=== PATIENT | male | born 1980 | race Caucasian/White ===

== ENCOUNTER 2017-10-12 15:45 | Emergency (ER) | payer OTHER ==
[~2017-10-12] VITALS: Ht 188 cm; Wt 68.0 kg
[2017-10-13] MEDS ORDERED: IBUPROFEN 600 MG TABLET PO ONE (01:00)
[2017-10-13] MEDS ORDERED: HYDROCODONE/APAP 10-325 MG TABLET PO ONE (01:00)
[2017-10-13] MEDS ORDERED: IBUPROFEN 600 MG TABLET ONE (01:10)
--- NOTE | 2017-10-13 01:17 | NUR ---
Margo العراقي in ED - 10/13/17 at 0122 by CANDIS Patient discharged to home in stable conditon. Written and verbal after care instructions given. Patient verbalizes understanding of instructions.
--- NOTE | 2017-10-13 01:22 | NUR ---
Patient given written and verbal discharge instructions. Patient verbalizes understanding of instructions. Patient is ambulatory with steady gait. Refuses offer of fpc placement. Patient given list of available shelters in surrounding area.
[2017-10-13] MEDS ORDERED: HYDROCODONE/APAP 10-325 MG TABLET ONE (01:31)
== END 2017-10-13 01:23 | disposition home or self-care (01) ==
LOC: ER 15:46
DX: S60.511A Abrasion of right hand, initial encounter (principal); M25.561 Pain in right knee; V19.9XXA Pedal cyclist (driver) (passenger) injured in unspecified traffic accident, initial encounter; Y92.89 Other specified places as the place of occurrence of the external cause; Y93.55 Activity, bike riding; Y99.8 Other external cause status
CPT/HCPCS: 73130; A4663

== ENCOUNTER 2017-10-13 20:14 | Emergency (ER) | payer OTHER ==
[~2017-10-13] VITALS: Ht 188 cm; Wt 68.0 kg
--- NOTE | 2017-10-13 21:08 | NUR ---
dPatient discharged to home in stable conditon. Written and verbal after care instructions given. Patient verbalizes understanding of instructions. Ambulated from Er with stable gait. All belongings with patient.
[2017-10-13 21:10] VITALS: BP 128/81
== END 2017-10-13 21:11 | disposition home or self-care (01) ==
LOC: ER 20:18
DX: Z76.0 Encounter for issue of repeat prescription (principal); F41.9 Anxiety disorder, unspecified
CPT/HCPCS: A4663

== ENCOUNTER 2017-11-23 22:59 | Emergency (ER) | payer OTHER ==
[~2017-11-23] VITALS: Ht 188 cm; Wt 63.5 kg
[2017-11-23] MEDS ORDERED: DIAZEPAM 5 MG TABLET (23:35)
[2017-11-23] MEDS ORDERED: FLUOXETINE HCL 20 MG CAPSULE (23:35)
[2017-11-23] MEDS ORDERED: PROPRANOLOL 40 MG TABLET (23:35)
--- NOTE | 2017-11-24 00:59 | NUR ---
Patient discharged to home in stable conditon. Written and verbal after care instructions given. Patient verbalizes understanding of instructions.
== END 2017-11-24 01:00 | disposition home or self-care (01) ==
LOC: ER 22:59
DX: Z76.0 Encounter for issue of repeat prescription (principal); I10 Essential (primary) hypertension; F41.9 Anxiety disorder, unspecified
CPT/HCPCS: 93005; A4663

== ENCOUNTER 2017-12-03 19:54 | Emergency (ER) | payer OTHER ==
[~2017-12-03] VITALS: Ht 188 cm; Wt 63.5 kg
[~2017-12-03 19:54] MED LIST: DIAZEPAM 5 MG TABLET; FLUOXETINE HCL 20 MG CAPSULE; PROPRANOLOL 40 MG TABLET
--- NOTE | 2017-12-03 20:19 | NUR ---
DR. MAZA AT BEDSIDE FOR MSE.
[2017-12-03] MEDS ORDERED: PROPRANOLOL HCL 10 MG TABLET PO ONE (20:45)
[2017-12-03] MEDS ORDERED: DIAZEPAM 2 MG TABLET PO ONE (20:45)
[2017-12-03] MEDS ORDERED: DIAZEPAM 2 MG TABLET ONE (20:56)
[2017-12-03] MEDS ORDERED: PROPRANOLOL HCL 10 MG TABLET ONE (20:58)
[2017-12-03 21:45] LABS: *AMPHETAMINE, URINE POSITIVE (NEGATIVE); *BARBITURATE, URINE NEGATIVE (NEGATIVE); *CANNABINOID, URINE POSITIVE (NEGATIVE); *COCCAINE, URINE NEGATIVE (NEGATIVE); *OPIATE, URINE NEGATIVE (NEGATIVE); *PHENCYCLIDINE SCREEN,URINE NEGATIVE (NEGATIVE)
[2017-12-03 22:19] VITALS: BP 125/61
== END 2017-12-03 22:20 | disposition home or self-care (01) ==
LOC: ER 19:54
DX: F15.10 Other stimulant abuse, uncomplicated (principal); F41.9 Anxiety disorder, unspecified; F13.20 Sedative, hypnotic or anxiolytic dependence, uncomplicated; F12.10 Cannabis abuse, uncomplicated; I10 Essential (primary) hypertension; Z76.0 Encounter for issue of repeat prescription; Z79.899 Other long term (current) drug therapy
CPT/HCPCS: 80307; 99283; A4663

== ENCOUNTER 2017-12-14 17:20 | Emergency (ER) | payer OTHER ==
[~2017-12-14] VITALS: Ht 188 cm; Wt 63.5 kg
--- NOTE | 2017-12-14 18:56 | NUR ---
Margo العراقي in ED - 12/14/[address] at [address] miranda at the bedside.
--- NOTE | 2017-12-14 19:12 | NUR ---
Assumed care of patient. Patient in bed, VSS. No acute distress noted.
--- NOTE | 2017-12-14 19:13 | NUR ---
sbar report to toñito currie.
[2017-12-14] MEDS ORDERED: DIAZEPAM 2 MG TABLET PO ONE (19:30)
[2017-12-14] MEDS ORDERED: DIAZEPAM 5 MG TABLET ONE (19:35)
--- NOTE | 2017-12-14 19:37 | NUR ---
Patient discharged to home in stable conditon. Written and verbal after care instructions given. Patient verbalizes understanding of instructions.
== END 2017-12-14 19:38 | disposition home or self-care (01) ==
LOC: ER 17:24
DX: F41.1 Generalized anxiety disorder (principal); I10 Essential (primary) hypertension; Z76.0 Encounter for issue of repeat prescription; Z79.899 Other long term (current) drug therapy
CPT/HCPCS: A4663

== ENCOUNTER 2018-02-05 07:20 | Emergency (ER) | payer OTHER ==
[~2018-02-05] VITALS: Ht 188 cm; Wt 77.1 kg
--- NOTE | 2018-02-05 07:54 | NUR ---
PT WAS EVALUATED BY DR MALONE. PT WAS MEDICATED ACCORDING TO ER MD ORDERS. PT TOLERATED TO PROCEDURES AND MEDICATION WITHOUT COMPLICATIONS. PT WAS D/C TO HOME. D/C INSTRUCTIONS GIVEN TO THE PT.
[2018-02-05] MEDS ORDERED: SULFAMETH/TRIMETH 800/160 MG TABLET PO ONE (08:00)
[2018-02-05] MEDS ORDERED: MUPIROCIN 2% OINT 22 GM TUBE TP ONE (08:00)
[2018-02-05] MEDS ORDERED: SULFAMETH/TRIMETH 800/160 MG TABLET ONE (08:07)
[2018-02-05] MEDS ORDERED: MUPIROCIN 2% OINT 22 GM TUBE ONE (08:07)
[2018-02-05 08:22] VITALS: BP 129/82
== END 2018-02-05 08:24 | disposition home or self-care (01) ==
LOC: ER 07:20
DX: L97.519 Non-pressure chronic ulcer of other part of right foot with unspecified severity (principal); I10 Essential (primary) hypertension; Z48.00 Encounter for change or removal of nonsurgical wound dressing; Z76.0 Encounter for issue of repeat prescription; Z79.899 Other long term (current) drug therapy
CPT/HCPCS: A4217; A4663

== ENCOUNTER 2018-02-12 06:17 | Emergency (ER) | payer OTHER ==
[~2018-02-12] VITALS: Ht 188 cm; Wt 72.6 kg
--- NOTE | 2018-02-12 06:47 | NUR ---
DR GERSON VELAZCO MD AT BEDSIDE FOR MSE. PT C/O RT FOOT PAIN R/T BLISTERS HE HAS HAD FOR 1 WEEK. NO ACTIVE BLEEDING.
--- NOTE | 2018-02-12 07:31 | NUR ---
Recieved pt in bed, resting comfortably. NAD noted.
--- NOTE | 2018-02-12 08:00 | NUR ---
Pt ate breakfast w/ good appetite.
[2018-02-12 08:39] VITALS: BP 110/71
--- NOTE | 2018-02-12 08:40 | NUR ---
Patient given written and verbal discharge instructions. Patient verbalizes understanding of instructions. Patient is ambulatory with steady gait. Refuses offer of senior living placement. Patient given list of available shelters in surrounding area.
== END 2018-02-12 08:40 | disposition home or self-care (01) ==
LOC: ER 06:19
DX: L30.9 Dermatitis, unspecified (principal); I10 Essential (primary) hypertension; Z79.899 Other long term (current) drug therapy
CPT/HCPCS: A4663

== ENCOUNTER 2018-02-18 06:19 | Emergency (ER) | payer OTHER ==
[~2018-02-18] VITALS: Ht 188 cm; Wt 72.6 kg
--- NOTE | 2018-02-18 06:56 | NUR ---
DR FELICIA VELAZCO MD AT BEDSIDE FOR MSE.
--- NOTE | 2018-02-18 07:10 | NUR ---
Patient discharged to home in stable conditon. Written and verbal after care instructions given. Patient verbalizes understanding of instructions. Pt took all personal belongings. All pt needs met. No distress noted. Pt took all personal belongings.
[2018-02-18 07:12] VITALS: BP 142/72
== END 2018-02-18 07:12 | disposition home or self-care (01) ==
LOC: ER 06:19
DX: F41.9 Anxiety disorder, unspecified (principal); F42.9 Obsessive-compulsive disorder, unspecified; I10 Essential (primary) hypertension; Z76.0 Encounter for issue of repeat prescription
CPT/HCPCS: 99283; A4663

== ENCOUNTER 2018-02-19 15:52 | Emergency (ER) | payer OTHER ==
[~2018-02-19] VITALS: Ht 188 cm; Wt 72.6 kg
--- NOTE | 2018-02-19 17:41 | NUR ---
MSE COMPLETED, PT D/C'D HOME, ACI/RX X1 GIVEN. PT AMBULATWED W/O DIFF/TOOK ALL BELONGINGS.
[2018-02-19 17:43] VITALS: BP 148/82
== END 2018-02-19 17:43 | disposition home or self-care (01) ==
LOC: ER 15:55
DX: S90.821A Blister (nonthermal), right foot, initial encounter (principal); Z76.0 Encounter for issue of repeat prescription; I10 Essential (primary) hypertension; F41.9 Anxiety disorder, unspecified; F42.9 Obsessive-compulsive disorder, unspecified; Z59.0 Homelessness; X58.XXXA Exposure to other specified factors, initial encounter; Y93.89 Activity, other specified; Y92.89 Other specified places as the place of occurrence of the external cause; Y99.8 Other external cause status
CPT/HCPCS: A4663

== ENCOUNTER 2018-03-07 10:11 | Emergency (ER) | payer OTHER ==
[~2018-03-07] VITALS: Ht 188 cm; Wt 74.8 kg
[2018-03-07] MEDS ORDERED: CLON1TAB PO (10:21)
[2018-03-07] MEDS ORDERED: PROPRANOLOL 60 MG TABLET PO (10:21)
== END 2018-03-07 10:56 | disposition home or self-care (01) ==
LOC: ER 10:11
DX: Z76.0 Encounter for issue of repeat prescription (principal); I10 Essential (primary) hypertension; Z79.899 Other long term (current) drug therapy
CPT/HCPCS: 99283; A4663

== ENCOUNTER 2018-09-13 11:15 | Emergency (ER) | payer OTHER ==
[~2018-09-13] VITALS: Ht 188 cm; Wt 81.6 kg
[~2018-09-13 11:15] MED LIST changes: +CLON1TAB PO; -DIAZEPAM 5 MG TABLET; +FLUO20CA36 PO; -FLUOXETINE HCL 20 MG CAPSULE; -PROPRANOLOL 40 MG TABLET; +PROPRANOLOL 60 MG TABLET PO
--- NOTE | 2018-09-13 11:20 | NUR ---
Pt ambulated into ER, pt states he started having heaviness in his chest at 1100 today after he drank a lot of caffeine and smoked a cigarette. Pt placed in room 1a, EKG done and pt placed on cont manager cardiac cath.
[2018-09-13] MEDS ORDERED: METOPROLOL TARTRATE 5 MG/5 ML VIAL IVP ONE ×2 (11:45→11:50)
[2018-09-13] MEDS ORDERED: IV NORMAL SALINE 1000 ML BAG IV ONE (11:45)
[2018-09-13 11:52] VITALS: BP 137/62
[2018-09-13 12:00] LABS: BASOPHILS # (AUTO) 0.1 K/uL (0.0-8.0); BASOPHILS % (AUTO) 0.8 % (0.0-2.0); EOSINOPHILS # (AUTO) 0.3 K/uL (0.0-0.7); HEMATOCRIT 40.8 % (36.7-47.1); LYMPHOCYTES # (AUTO) 2.6 K/uL (20.0-40.0); LYMPHOCYTES % (AUTO) 22.9 % (20.5-51.5); MEAN CORPUSCULAR HEMOGLOBIN 31.4 uug (23.8-33.4); MEAN CORPUSCULAR HGB CONC 34 g/dL (32.5-36.3); MEAN CORPUSCULAR VOLUME 91.7 fL (73.0-96.2); MONOCYTES # (AUTO) 1.1 K/uL (2.0-10.0); MONOCYTES % (AUTO) 9.9 % (0.0-11.0); NEUTROPHILS # (AUTO) 7.3 K/uL (1.8-8.9); NEUTROPHILS % (AUTO) 63.4 % (38.5-71.5); PLATELET COUNT (AUTO) 294 K/uL (152-348); RED BLOOD CELL COUNT(AUTO) 4.45 MIL/uL (4.06-5.63); WHITE BLOOD COUNT (AUTO) 11.5 K/uL (3.6-10.2)
[2018-09-13 12:01] LABS: CREATININE 0.9 mg/dL (0.6-1.3)
[2018-09-13 12:13] LABS: BILIRUBIN,DIRECT 0.1 mg/dL (0.0-0.2); BILIRUBIN,TOTAL 0.4 mg/dL (0.2-1.0)
--- NOTE | 2018-09-13 12:49 | NUR ---
Patient does not wish to proceed with medical care recommended by Dr. Pascual moreno ). Patient given information related to possible complications, up to and including , which could occur as a result of leaving the hospital at this time. Patient verbalizes understanding of risks involved due to leaving against medical advice. Patient has signed AMA form.
== END 2018-09-13 12:49 | disposition left against medical advice (07) ==
LOC: ER 11:15
DX: R00.0 Tachycardia, unspecified (principal); Z76.0 Encounter for issue of repeat prescription; I10 Essential (primary) hypertension; Z79.899 Other long term (current) drug therapy
CPT/HCPCS: 36415; 71045; 80048; 80076; 83880; 84443; 84484; 85025; 85730; 93005 ×2; 96374; 99284; J3490; 70030-TC; A4663; J7030

== ENCOUNTER 2018-09-27 21:33 | Emergency (ER) | payer OTHER ==
[~2018-09-27] VITALS: Ht 188 cm; Wt 81.6 kg
--- NOTE | 2018-09-27 21:50 | NUR ---
Pt. ambulated in to ED w/ c/o CP and SOB but says "it went away", A/Ox4, MD ESTEFANY at bedside for MSE
[2018-09-27] MEDS ORDERED: CLONAZEPAM 0.5 MG TABLET ONE (22:11)
[2018-09-27] MEDS ORDERED: CLONAZEPAM 0.5 MG TABLET PO ONE (22:15)
[2018-09-27] MEDS: CLONAZEPAM 0.5 MG TABLET PO ONE (22:17)
--- NOTE | 2018-09-27 22:20 | NUR ---
Patient discharged to home in stable conditon. Written and verbal after care instructions given. Patient verbalizes understanding of instructions. Pt. d/c w/ prescription per MD order, all belongings w/ pt., d/c papers signed, pt. instructed not to drive, VSS, no acute distress,
== END 2018-09-27 22:20 | disposition home or self-care (01) ==
LOC: ER 21:35
DX: F41.8 Other specified anxiety disorders (principal); Z76.0 Encounter for issue of repeat prescription; I10 Essential (primary) hypertension; F17.200 Nicotine dependence, unspecified, uncomplicated; Z59.0 Homelessness; Z79.899 Other long term (current) drug therapy
CPT/HCPCS: A4663

== ENCOUNTER 2018-11-18 10:30 | Emergency (ER) | payer OTHER ==
--- NOTE | 2018-11-18 10:32 | NUR ---
CALLED PT TO COME INSIDE TO BE TRIAGED. PT NOT IN THE WAITING ROOM OR OUT SIDE.
== END 2018-11-18 10:52 | disposition left against medical advice (07) ==
LOC: ER 10:30
DX: Z53.21 Procedure and treatment not carried out due to patient leaving prior to being seen by health care provider (principal)

== ENCOUNTER 2019-10-18 16:01 | Emergency (ER) | payer OTHER ==
[~2019-10-18] VITALS: Ht 188 cm; Wt 77.1 kg
[2019-10-18 17:20] VITALS: BP 116/86
--- NOTE | 2019-10-18 17:20 | NUR ---
Patient discharged to home in stable conditon. Written and verbal after care instructions given. Patient verbalizes understanding of instructions. Walked out of ER with no distress noted.
== END 2019-10-18 17:21 | disposition home or self-care (01) ==
LOC: ER 16:02
DX: M25.562 Pain in left knee (principal); M25.571 Pain in right ankle and joints of right foot; F41.9 Anxiety disorder, unspecified; I10 Essential (primary) hypertension; F17.210 Nicotine dependence, cigarettes, uncomplicated; Z79.899 Other long term (current) drug therapy; W11.XXXA Fall on and from ladder, initial encounter; Y93.89 Activity, other specified; Y92.89 Other specified places as the place of occurrence of the external cause; Y99.8 Other external cause status
CPT/HCPCS: 73610; A4663

== ENCOUNTER 2019-11-26 11:25 | Emergency (ER) | payer OTHER ==
[~2019-11-26] VITALS: Ht 188 cm; Wt 77.1 kg
[2019-11-26] MEDS ORDERED: IBUPROFEN 800 MG TABLET PO ONE (11:45)
[2019-11-26] MEDS ORDERED: IBUPROFEN 800 MG TABLET ONE (11:45)
--- NOTE | 2019-11-26 12:00 | NUR ---
Patient given written and verbal discharge instructions. Patient verbalizes understanding of instructions. Patient is ambulatory with steady gait. Refuses offer of detention placement. Patient given list of available shelters in surrounding area.
== END 2019-11-26 12:01 | disposition home or self-care (01) ==
LOC: ER 11:25
DX: S90.425A Blister (nonthermal), left lesser toe(s), initial encounter (principal); S90.424A Blister (nonthermal), right lesser toe(s), initial encounter; M79.672 Pain in left foot; M79.671 Pain in right foot; F41.9 Anxiety disorder, unspecified; I10 Essential (primary) hypertension; F17.210 Nicotine dependence, cigarettes, uncomplicated; Z79.899 Other long term (current) drug therapy; X58.XXXA Exposure to other specified factors, initial encounter; Y93.89 Activity, other specified; Y92.89 Other specified places as the place of occurrence of the external cause; Y99.8 Other external cause status
CPT/HCPCS: A4663